=== PATIENT | female | born 1995 | race Caucasian/White ===

== ENCOUNTER 2017-01-26 21:45 | Emergency (ER) | payer OTHER | END 2017-01-26 22:40 | disposition home or self-care (01) | LOC: ER 21:45 | DX: S90.31XA Contusion of right foot, initial encounter (principal); W19.XXXA Unspecified fall, initial encounter; Y93.01 Activity, walking, marching and hiking; Y92.828 Other wilderness area as the place of occurrence of the external cause | CPT/HCPCS: 73630; 99070; 99283-25 ==